=== PATIENT | female | born 1945 | race Caucasian/White ===

== ENCOUNTER 2018-07-15 08:42 | Outpatient (REF) | payer OTHER, SELFPAY ==
[2018-07-15 13:26] LABS: TSH 1.36 uIU/mL (0.358-3.74)
== END 2018-07-15 09:02 ==
LOC: NCHCN 08:42
PROVIDERS: PCP Family Medicine; Visit Provider Family Medicine
DX: E03.9 Hypothyroidism, unspecified (principal)
CPT/HCPCS: 84443

== ENCOUNTER 2018-11-21 08:10 | Outpatient (REF) | payer OTHER, SELFPAY ==
[2018-11-21 13:17] LABS: Iron 81 ug/dL (50-175); Total Iron Binding Capacity 380 ug/dL (250-450); Transferrin Sat 21 % (15-50)
[2018-11-21 13:32] LABS: Magnesium 1.9 mg/dL (1.8-2.4); TSH 6.62 uIU/mL (0.358-3.74)
== END 2018-11-21 08:30 ==
LOC: NCHCN 08:10
PROVIDERS: PCP Family Medicine; Visit Provider Family Medicine
DX: E83.42 Hypomagnesemia (principal); E61.1 Iron deficiency; E03.9 Hypothyroidism, unspecified
CPT/HCPCS: 83540; 83550; 83735; 84443

== ENCOUNTER 2019-01-28 12:39 | Outpatient (REF) | payer OTHER, SELFPAY ==
[2019-01-28 19:47] LABS: HCT 40.8 % (36.0-46.0); HGB 13.3 g/dL (12.0-15.5); Mean Corp. HGB Concentration 32.6 g/dL (32.0-36.0); Mean Corpuscular Hemoglobin 28.7 pg (27.0-33.0); Mean Corpuscular Volume 88.1 fL (80-95); Mean Platelet Volume 9.7 fL (8.0-11.0); Platelet Count 254 x1000/uL (130-400); RBC 4.63 m/cumm (4.00-5.20); RBC Distribution Width 12.9 % (11.7-14.6); White Blood Cell Count 9.83 k/cumm (4.4-10.8)
[2019-01-28 20:04] LABS: Anion Gap 10.8 mmol/L (3-11); BUN 14 mg/dL (7-18); CO2 28.2 mmol/L (21.0-32.0); CREATININE 0.66 mg/dL (0.55-1.02); Calcium 9.9 mg/dL (8.5-10.1); Chloride 98 mmol/L (98-107); Glucose 112 mg/dL (70-100); NT-proBNP 86 pg/mL; Potassium 3.3 mmol/L (3.5-5.1); Sodium 137 mmol/L (136-145); TSH (W/Ref FT4) 2.74 uIU/mL (0.358-3.74)
== END 2019-01-28 12:59 ==
LOC: NCHCN 12:39
PROVIDERS: PCP Family Medicine; Visit Provider Family Medicine
DX: R06.02 Shortness of breath (principal); E03.9 Hypothyroidism, unspecified
CPT/HCPCS: 80048; 85027; 83880; 84443

== ENCOUNTER 2019-01-29 06:56 | Outpatient (CLI) | payer OTHER, SELFPAY ==
--- NOTE | 2019-01-28 12:38 | DI.RAD_ITS ---
SYMPTOMS/DIAGNOSIS: WORSENING SHORTNESS OF BREATH, R06.02, H/O COPD, NOW WITH DYSPNEA ON EXERTION CHEST X-RAY, PA AND LATERAL: Comparison is 12/20/17. The heart size and pulmonary vasculature are within normal limits. No focal consolidating infiltrates, effusions or pneumothoraces are identified. The lungs appear hyperinflated with flattened diaphragms suggesting underlying COPD. Appropriate degenerative changes are seen in the thoracic spine. IMPRESSION: No acute pulmonary process.
== END 2019-01-29 07:16 ==
PROVIDERS: PCP Family Medicine; Visit Provider Family Medicine
DX: R06.02 Shortness of breath (principal); R06.09 Other forms of dyspnea; J44.9 Chronic obstructive pulmonary disease, unspecified
CPT/HCPCS: 71046

== ENCOUNTER 2019-03-06 13:31 | Outpatient (REF) | payer OTHER, SELFPAY ==
[2019-03-06 18:39] LABS: Bilirubin Negative (Negative); Blood Negative (Negative); Clarity Cloudy; Glucose 100 mg/dL (Negative); Ketones Negative (Negative); Leukocyte Esterase Small (Negative); Nitrite Negative (Negative); Specific Gravity 1.025 (1.005-1.025); Urobilinogen 0.2 EU/dL (Up TO 0.2)
[2019-03-06 18:50] LABS: Epithelial Cells Many HPF (Negative)
[2019-03-06 18:51] LABS: C & S Indicated? C&S Done As Ordered; Crystals Many Amorphous HPF (Negative); Mucus Negative (Negative)
== END 2019-03-06 13:51 ==
LOC: NCHCN 13:31
PROVIDERS: PCP Family Medicine; Visit Provider Family Medicine
DX: R30.9 Painful micturition, unspecified (principal)
CPT/HCPCS: 87077; 81003; 81015; 87086

== ENCOUNTER 2019-03-16 01:08 | Outpatient (CLI) | payer OTHER, SELFPAY ==
--- NOTE | 2019-03-16 10:48 | DI.MAMMO_ITS ---
SYMPTOMS/DIAGNOSIS: SCREENING, [facility], Z00.00 MAMMOGRAM: Mammograms were interpreted according to the usual protocol including computer analysis with CAD system, tomosynthesis and C view imaging. The breasts are of moderate density with fairly symmetrical distribution of fibroglandular tissue. No dominant mass or clumped microcalcification is identified in either breast. Current examination is compared with previous examinations including July 2016 and there has been no gross interval change in appearance in comparison with the previous studies. CONCLUSION: No specific evidence of malignancy at this time. Routine screening examinations are suggested at yearly intervals due to the family history of breast carcinoma. Category 1, breast density category B. MQSA ASSESSMENT OF FINDINGS: Negative. Category 1. Patient will receive a letter notifying them of these results. BI-RADS category B. There are scattered areas of fibroglandular density.
== END 2019-03-16 01:28 ==
PROVIDERS: PCP Family Medicine; Visit Provider Family Medicine
DX: Z12.31 Encounter for screening mammogram for malignant neoplasm of breast (principal); Z00.00 Encounter for general adult medical examination without abnormal findings; Z80.3 Family history of malignant neoplasm of breast
CPT/HCPCS: 77063; 77067

== ENCOUNTER 2019-06-30 09:36 | Outpatient (RCR) | payer OTHER, SELFPAY | END 2019-07-11 23:59 | disposition home or self-care (01) | LOC: PRC 09:36 | PROVIDERS: PCP Family Medicine; Visit Provider Family Medicine | DX: Z51.89 Encounter for other specified aftercare (principal) ==

== ENCOUNTER 2019-07-06 18:24 | Outpatient (REF) | payer OTHER, SELFPAY ==
[2019-07-06 19:39] LABS: ESR 35 mm/hr (0-30)
== END 2019-07-06 18:44 ==
LOC: NCHCN 18:24
PROVIDERS: PCP Family Medicine; Visit Provider Family Medicine
DX: R51 Headache (principal)
CPT/HCPCS: 85652

== ENCOUNTER 2019-07-12 04:50 | Outpatient (RCR) | payer OTHER, SELFPAY | END 2019-08-10 23:59 | disposition home or self-care (01) | LOC: PRC 04:50 | PROVIDERS: PCP Family Medicine; Visit Provider Family Medicine | DX: Z51.89 Encounter for other specified aftercare (principal) ==

== ENCOUNTER 2019-07-15 17:29 | Outpatient (REF) | payer OTHER, SELFPAY ==
[2019-07-16 11:04] LABS: Lyme Ab w Rflx to Lyme Confirm Negative
== END 2019-07-15 17:49 ==
LOC: NCHCN 17:29
PROVIDERS: PCP Family Medicine; Visit Provider Family Medicine
DX: R50.9 Fever, unspecified (principal); R51 Headache
CPT/HCPCS: 86618

== ENCOUNTER 2019-08-04 14:35 | Outpatient (REF) | payer OTHER, SELFPAY ==
[2019-08-04 18:43] LABS: Abs Immature Grans 0.04 k/cumm (0.0-0.09); Absolute Basophil Count 0.02 k/cumm (0.0-0.2); Absolute Eosinophil Count 0.29 k/cumm (0.0-0.7); Absolute Lymphocyte Count 1.42 k/cumm (1.2-3.4); Basophils % 0.2; Eosinophils % 3.2; HCT 39.8 % (36.0-46.0); HGB 12.4 g/dL (12.0-15.5); Immature Grans % 0.4; Lymphocytes % 15.7; Mean Corp. HGB Concentration 31.2 g/dL (32.0-36.0); Mean Corpuscular Hemoglobin 26.6 pg (27.0-33.0); Mean Corpuscular Volume 85.2 fL (80-95); Mean Platelet Volume 9.2 fL (8.0-11.0); Monocytes % 8.8; Neutrophils % 71.7; Platelet Count 340 x1000/uL (130-400); RBC 4.67 m/cumm (4.00-5.20); RBC Distribution Width 13.7 % (11.7-14.6); White Blood Cell Count 9.07 k/cumm (4.4-10.8)
[2019-08-04 18:56] LABS: ALT 38 U/L (14-59); AST 25 U/L (15-37); Albumin 3.8 g/dL (3.4-5.0); Alkaline Phosphatase 60 U/L (46-116); Anion Gap 12.6 mmol/L (3-11); BUN 15 mg/dL (7-18); Bilirubin, Total 0.3 mg/dL (0.2-1.0); CO2 27.4 mmol/L (21.0-32.0); CREATININE 0.71 mg/dL (0.55-1.02); Calcium 9.9 mg/dL (8.5-10.1); Chloride 100 mmol/L (98-107); Glucose 114 mg/dL (70-100); Magnesium 1.7 mg/dL (1.8-2.4); Potassium 3.7 mmol/L (3.5-5.1); Sodium 140 mmol/L (136-145); Total Protein 8.2 g/dL (6.4-8.2)
[2019-08-04 20:07] LABS: ESR 99 mm/hr (0-30)
== END 2019-08-04 14:55 ==
LOC: NCHCN 14:35
PROVIDERS: PCP Family Medicine; Visit Provider Family Medicine
DX: R50.9 Fever, unspecified (principal); E88.81 Metabolic syndrome and other insulin resistance; E83.42 Hypomagnesemia; E61.1 Iron deficiency
CPT/HCPCS: 80053; 85652; 83735; 85025

== ENCOUNTER 2019-08-04 14:44 | Outpatient (CLI) | payer OTHER, SELFPAY ==
--- NOTE | 2019-08-04 12:37 | DI.RAD_ITS ---
EXAM: XR CHEST 2V PA LATERAL INDICATION: FEVER, R50.9, COPD, J44.9. COMPARISON: XR CHEST 2V PA LATERAL from 01/28/2019 TECHNIQUE: 2D digital imaging was performed. FINDINGS: The lungs are well expanded and free of infiltrate. There is no pleural effusion. The cardiovascular structures appear intact. IMPRESSION: No evidence of acute cardiopulmonary disease.
== END 2019-08-04 15:04 ==
PROVIDERS: PCP Family Medicine; Visit Provider Family Medicine
DX: R50.9 Fever, unspecified (principal); J44.9 Chronic obstructive pulmonary disease, unspecified
CPT/HCPCS: 71046

== ENCOUNTER 2019-08-11 14:32 | Outpatient (RCR) | payer SELFPAY | END 2019-09-10 23:59 | disposition home or self-care (01) | LOC: PRC 14:32 | PROVIDERS: PCP Family Medicine; Visit Provider Family Medicine | DX: Z51.89 Encounter for other specified aftercare (principal) ==

== ENCOUNTER 2019-08-31 11:20 | Outpatient (CLI) | payer OTHER, MEDICARE, SELFPAY ==
--- NOTE | 2019-08-31 11:12 | DI.RAD_ITS ---
EXAM: XR TOE RT GREAT INDICATION: FELL AND TENDER BRUISING OVER 1ST TOE. COMPARISON: No exams were available for comparison TECHNIQUE: 2D digital imaging was performed. FINDINGS: A nondisplaced fracture of the proximal metaphysis of the distal phalanx of the great toe is noted an d appears to enter the joint space. There is no evidence of a dislocation.
== END 2019-08-31 11:40 ==
PROVIDERS: PCP Family Medicine; Visit Provider Family Medicine
DX: S92.424A Nondisplaced fracture of distal phalanx of right great toe, initial encounter for closed fracture (principal); W19.XXXA Unspecified fall, initial encounter
CPT/HCPCS: 73660

== ENCOUNTER 2019-09-15 12:27 | Outpatient (REF) | payer OTHER, SELFPAY ==
[2019-09-15 19:45] LABS: Abs Immature Grans 0.16 k/cumm (0.0-0.09); Absolute Basophil Count 0.01 k/cumm (0.0-0.2); Absolute Eosinophil Count 0.02 k/cumm (0.0-0.7); Absolute Lymphocyte Count 0.95 k/cumm (1.2-3.4); Absolute Monocyte Count 0.32 k/cumm (0.11-0.7); Absolute Neutrophil Count 9.59 k/cumm (1.2-6.7); Basophils % 0.1; Eosinophils % 0.2; HGB 13.2 g/dL (12.0-15.5); Immature Grans % 1.4; Lymphocytes % 8.6; Mean Corp. HGB Concentration 31.4 g/dL (32.0-36.0); Mean Corpuscular Hemoglobin 27.2 pg (27.0-33.0); Mean Corpuscular Volume 86.6 fL (80-95); Mean Platelet Volume 9.9 fL (8.0-11.0); Monocytes % 2.9; Neutrophils % 86.8; Platelet Count 306 x1000/uL (130-400); RBC 4.85 m/cumm (4.00-5.20); RBC Distribution Width 15.3 % (11.7-14.6); White Blood Cell Count 11.05 k/cumm (4.4-10.8)
[2019-09-15 19:59] LABS: ALT 77 U/L (14-59); AST 22 U/L (15-37); Alkaline Phosphatase 56 U/L (46-116); Anion Gap 14.7 mmol/L (3-11); BUN 27 mg/dL (7-18); Bilirubin, Total 0.4 mg/dL (0.2-1.0); CO2 26.3 mmol/L (21.0-32.0); CREATININE 0.76 mg/dL (0.55-1.02); Calcium 10.1 mg/dL (8.5-10.1); Chloride 96 mmol/L (98-107); Glucose 291 mg/dL (70-100); Sodium 137 mmol/L (136-145); Total Protein 7.7 g/dL (6.4-8.2)
[2019-09-15 20:40] LABS: ESR 19 mm/hr (0-30)
== END 2019-09-15 12:47 ==
LOC: NCHCN 12:27
PROVIDERS: PCP Family Medicine; Visit Provider Family Medicine
DX: E83.42 Hypomagnesemia (principal); M31.6 Other giant cell arteritis
CPT/HCPCS: 80053; 85652; 83735; 85025

== ENCOUNTER 2019-11-09 21:13 | Outpatient (REF) | payer OTHER, MEDICARE, SELFPAY ==
[2019-11-09 21:20] LABS: Absolute Basophil Count 0.03 k/cumm (0.0-0.2); Absolute Lymphocyte Count 0.79 k/cumm (1.2-3.4); Absolute Monocyte Count 0.32 k/cumm (0.11-0.7); Basophils % 0.2; HCT 38.6 % (36.0-46.0); HGB 11.8 g/dL (12.0-15.5); Immature Grans % 0.7; Lymphocytes % 5.9; Mean Corp. HGB Concentration 30.6 g/dL (32.0-36.0); Mean Corpuscular Hemoglobin 26.6 pg (27.0-33.0); Mean Corpuscular Volume 87.1 fL (80-95); Mean Platelet Volume 9.4 fL (8.0-11.0); Monocytes % 2.4; Neutrophils % 90.8; Platelet Count 399 x1000/uL (130-400); RBC 4.43 m/cumm (4.00-5.20); RBC Distribution Width 14.9 % (11.7-14.6); White Blood Cell Count 13.44 k/cumm (4.4-10.8)
[2019-11-09 21:25] LABS: ALT 59 U/L (14-59); AST 23 U/L (15-37); Alkaline Phosphatase 51 U/L (46-116); Anion Gap 11.3 mmol/L (3-11); BUN 19 mg/dL (7-18); Bilirubin, Total 0.3 mg/dL (0.2-1.0); CO2 28.7 mmol/L (21.0-32.0); CREATININE 0.64 mg/dL (0.55-1.02); Calcium 9.4 mg/dL (8.5-10.1); Chloride 99 mmol/L (98-107); Glucose 193 mg/dL (74-106); Potassium 4.3 mmol/L (3.5-5.1); Sodium 139 mmol/L (136-145); Total Protein 7.5 g/dL (6.4-8.2)
== END 2019-11-09 21:33 ==
LOC: NCHCN 21:13
PROVIDERS: PCP Family Medicine; Visit Provider Family Medicine
DX: M31.6 Other giant cell arteritis (principal)
CPT/HCPCS: 80053; 85025

== ENCOUNTER 2020-01-20 17:21 | Outpatient (REF) | payer OTHER, SELFPAY ==
[2020-01-20 13:18] LABS: Abs Immature Grans 0.15 k/cumm (0.0-0.09); Absolute Basophil Count 0.04 k/cumm (0.0-0.2); Absolute Eosinophil Count 0.07 k/cumm (0.0-0.7); Absolute Lymphocyte Count 1.11 k/cumm (1.2-3.4); Absolute Neutrophil Count 11.36 k/cumm (1.2-6.7); Basophils % 0.3; Eosinophils % 0.5; HCT 33.4 % (36.0-46.0); HGB 9.8 g/dL (12.0-15.5); Immature Grans % 1.1 %; Lymphocytes % 8.4; Mean Corp. HGB Concentration 29.3 g/dL (32.0-36.0); Mean Corpuscular Hemoglobin 23.4 pg (27.0-33.0); Mean Corpuscular Volume 79.7 fL (80-95); Monocytes % 3.8; Neutrophils % 85.9; Platelet Count 381 x1000/uL (130-400); RBC 4.19 m/cumm (4.00-5.20); RBC Distribution Width 15.9 % (11.7-14.6); White Blood Cell Count 13.22 k/cumm (4.4-10.8)
[2020-01-20 13:36] LABS: Basophilic Stippling Present; Diff Comment Diff Reviewed; Hypochromasia 2+
[2020-01-20 13:42] LABS: Hemoglobin A1C 9.5 % (3.8-5.6)
[2020-01-20 13:46] LABS: Anion Gap 12.7 mmol/L (3-11); BUN 20 mg/dL (7-18); CO2 25.3 mmol/L (21.0-32.0); CREATININE 0.72 mg/dL (0.55-1.02); Calcium 9.2 mg/dL (8.5-10.1); Chloride 99 mmol/L (98-107); Glucose 192 mg/dL (74-106); Magnesium 1.8 mg/dL (1.8-2.4); NT-proBNP 74 pg/mL (<300); Potassium 4.3 mmol/L (3.5-5.1); Sodium 137 mmol/L (136-145); TSH (W/Ref FT4) 0.72 uIU/mL (0.36-3.74)
== END 2020-01-20 17:41 ==
LOC: NCHCN 17:21
PROVIDERS: PCP Family Medicine; Visit Provider Family Medicine
DX: R06.02 Shortness of breath (principal); E83.42 Hypomagnesemia; E03.9 Hypothyroidism, unspecified; E61.1 Iron deficiency; E11.9 Type 2 diabetes mellitus without complications; Z79.4 Long term (current) use of insulin
CPT/HCPCS: 80048; 83036; 83735; 83880; 84443; 85025

== ENCOUNTER 2020-03-02 15:50 | Outpatient (REF) | payer OTHER, SELFPAY ==
[2020-03-02 15:19] LABS: HCT 34.7 % (36.0-46.0); Mean Corp. HGB Concentration 28.8 g/dL (32.0-36.0); Mean Corpuscular Hemoglobin 22.4 pg (27.0-33.0); Mean Corpuscular Volume 77.6 fL (80-95); Mean Platelet Volume 9.5 fL (8.0-11.0); Platelet Count 421 x1000/uL (130-400); RBC 4.47 m/cumm (4.00-5.20); RBC Distribution Width 18.5 % (11.7-14.6); White Blood Cell Count 11.45 k/cumm (4.4-10.8)
[2020-03-02 15:34] LABS: Iron 21 ug/dL (50-170); Total Iron Binding Capacity 465 ug/dL (250-450); Transferrin Sat 5 % (15-50)
[2020-03-02 15:47] LABS: Ferritin 19 ng/mL (8-252)
== END 2020-03-02 16:10 ==
LOC: NCHCN 15:50
PROVIDERS: PCP Family Medicine; Visit Provider Family Medicine
DX: D50.0 Iron deficiency anemia secondary to blood loss (chronic) (principal)
CPT/HCPCS: 85027; 82728; 83540; 83550

== ENCOUNTER 2020-05-04 15:15 | Outpatient (REF) | payer OTHER, SELFPAY ==
[2020-05-04 21:25] LABS: HCT 35.2 % (36.0-46.0); HGB 10.5 g/dL (12.0-15.5); Mean Corp. HGB Concentration 29.8 g/dL (32.0-36.0); Mean Corpuscular Hemoglobin 23.3 pg (27.0-33.0); Mean Platelet Volume 9.6 fL (8.0-11.0); Platelet Count 361 x1000/uL (130-400); RBC 4.51 m/cumm (4.00-5.20); RBC Distribution Width 17.8 % (11.7-14.6); White Blood Cell Count 9.91 k/cumm (4.4-10.8)
[2020-05-04 21:30] LABS: Iron 19 ug/dL (50-170); Total Iron Binding Capacity 438 ug/dL (250-450); Transferrin Sat 4 % (15-50)
== END 2020-05-04 15:35 ==
LOC: NCHCN 15:15
PROVIDERS: PCP Family Medicine; Visit Provider Family Medicine
DX: D50.0 Iron deficiency anemia secondary to blood loss (chronic) (principal)
CPT/HCPCS: 85027; 83540; 83550

== ENCOUNTER 2020-06-08 01:57 | Outpatient (CLI) | payer OTHER, SELFPAY ==
--- NOTE | 2020-06-08 | DI.DEXA_ITS ---
EXAM: XR DEXA BONE DENSITY W/WO TYRA CLINICAL HISTORY: LANGUAGE INSTRUCTOR STEROID USE, Z79.52 TECHNIQUE: [employer] Horizon C densitometer. COMPARISON: 2013 FINDINGS: The lateral tomogram view of the thoracic and lumbar spine shows no evidence of compression fractur es. The aorta is calcified and appears normal in diameter where visualized. The bone mineral density measurements of the lumbar spine correspond to a total T-score of 1.6, in th e normal range. This represents an increase of 6.6 percent when compared with 2013. Findings could be in part secondary to increasing degenerative disc changes with increased endplate sclerosis. The bone mineral density measurements of the left hip correspond to a total T-score 1.9 and a femoral neck T-score of 0.9, in the normal range. There has been a 3.5 percent decrease in bone mineral den sity when compared with 2013. The bone mineral density measurements of the left forearm correspond to a T-score of distal 3rd of 0. 6, in the normal range. This is not significantly different from the previous exam. IMPRESSION: Normal bone mineral density.
== END 2020-06-08 02:17 ==
PROVIDERS: PCP Family Medicine; Visit Provider Family Medicine
DX: Z79.52 Long term (current) use of systemic steroids (principal)
CPT/HCPCS: 77080

== ENCOUNTER 2021-01-11 11:05 | Emergency (ER) | payer OTHER, SELFPAY ==
[2021-01-11 11:17] VITALS: BP 180/84; PULSE 104; RESP 24; TEMP 36.5; O2SAT 94
--- OUTSIDE RECORDS SUMMARY | 2021-01-11 11:17 | XMS_ITS ---
:1945 Author Care Team Providers Name Role Phone DR. RAMONA BIRCH Primary Care Provider [phone] DR. RAMONA BIRCH Referring Provider [phone] Allergies Code Code System Name Reaction Severity Status Onset 5781 RxNorm Indomethacin ? ? Active ? Notes: insect bite Medications Name Status Start Date Stop Date ? ? Advair Diskus 500 mcg-50 mcg/dose powder for inhalation Active ? Not available Inhale 1 puff twice a day by inhalation route. amlodipine 10 mg tablet Active ? Not avai lable Take 1 tablet every day by oral route. atorvastatin 20 mg tablet Active ? Not av ailable Take 1 tablet every day by oral route. BD Ultra Fine II Insulin Syringe 0.5 mL 31 gauge x 5/16 Active ? Not available Inject insulin subcutaneously as directed(once daily at bedtime ) Compression Stockings Active ? Not availa ble Knee high, use external Daliresp 500 mcg tablet Active ? Not avai lable Take 1 tablet every day by oral route. Farxiga 5 mg tablet Active ? Not availabl e Take 1 tablet every day by oral route. ipratropium 0.5 mg-albuterol 3 mg (2.5 mg base)/3 mL nebulizatio n soln Active ? Not available Inhale contents of 1 ampule via nebulizer every 4 to 6 hours as needed levothyroxine 125 mcg tablet Active ? Not available Take 1 tablet every day by oral route. losartan 100 mg-hydrochlorothiazide 25 mg tablet Active ? Not available Take 1 tablet every day by oral route. magnesium 400 mg (as magnesium oxide) capsule Active ? Not available Take 1 capsule twice a day by oral route. metformin 1,000 mg tablet Active ? Not av ailable Take 1 tablet twice a day by oral route. metoprolol succinate ER 25 mg tablet,extended release 24 hr Acti ve ? Not available Take 1 tablet every day by oral route. omeprazole 20 mg capsule,delayed release Active ? Not available Take 1 capsule every day by oral route. OneTouch Delica Lancets Active ? Not avai lable Test once a day OneTouch Ultra Blue Test Strip Active ? N ot available Test once a day oxygen Active ? Not available 2-4 liters continuous prednisone 20 mg tablet Active ? Not avai lable TAKE 3 TABLET (20 MG) BY ORAL ROUTE ONCE DAILY Spiriva with HandiHaler 18 mcg and inhalation capsules Active ? Not available Inhale 1 capsule every day by inhalation route. spironolactone 50 mg tablet Active ? Not available Take 1 tablet every day by oral route. Ventolin HFA 90 mcg/actuation aerosol inhaler Active ? Not available Inhale 2 puffs every 4-6 hours by inhalation route as needed. Vitamin D 2,000 unit capsule Active ? Not available Take 1 capsule every day by oral route. Problems Name Status Onset Date Source ? Polyp of Colon Active ? ? Hypothyroidism Active ? ? Type 2 Diabetes Mellitus Active ? ? Hyperlipidemia Active ? ? Iron Deficiency Active ? ? Hypomagnesemia Active ? ? Metabolic Syndrome X Active ? ? Obstructive Sleep Apnea of Adult Active ? ? Hypertensive Disorder Active ? ? Temporal Arteritis Active ? ? Peripheral Venous Insufficiency Active ? ? Chronic Obstructive Lung Disease Active ? ? Gastritis Active ? ? Fever Active ? ? Headache Active ? ? Intermittent Palpitations Active ? ? Adult Health Examination Active ? ? Pain in Left Knee Active ? ? Procedures Date Name Performed by ? ? Colonoscopy Information not avai lable Notes: BLADDER SLING Results Lab Results None recorded. Past Encounters 08/06/2019 Tone Contreras, DO: [address] [place] [address], Ph. Social History Tobacco Smoking Status Former Smoker (1 pack per Notes: UP TO ONE PACK A week) DAY Vaccine List None recorded. Plan of Care Reminders Provider Appointments None ? ? recorded. Lab None ? ? recorded. Referral None ? ? recorded. Procedures None ? ? recorded. Surgeries None ? ? recorded. Imaging None ? ? recorded. Vitals Height Weight BMI Blood Pressure 160.02 cm 89.36 kg 34.9 kg/m2 136/50 mm[Hg]
--- NOTE | 2021-01-11 11:27 | ED.GENADUL_ITS ---
Discharge Plan Disposition Patient Disposition: HOME Condition: Stable Discharge Details Clinical Impression: Abscess of chest wall Primary Care Provider: Manny Lazaro ED Provider: Gage Butterfield Home Meds and New Rx's Prescriptions: New sulfamethoxazole-trimethoprim [Bactrim DS] 800-160 mg tablet 1 tab PO BID Qty: 14 RF: 0 Continued losartan-hydrochlorothiazide [Hyzaar] 1 EACH tablet 1 tab PO DAILY Qty: 90 RF: 4 ipratropium-albuterol 3 ML solution for nebulization 3 ml Inhalation PRN PRNQty: 120 RF: 12 amlodipine [Norvasc] 5 MG tablet 5 mg PO DAILY Qty: 90 RF: 4 levothyroxine [Levothroid] 100 MCG tablet 100 mcg PO DAILY@0730 Qty: 90 RF: 4 fluticasone propion-salmeterol [Advair Diskus] 1 EACH blister with device 1 gm Inhalation BID Qty: 1 RF: 12 omeprazole 20 MG capsule,delayed release(DR/EC) 20 mg PO DAILY RF: 0 albuterol sulfate [Ventolin HFA] 8 GM HFA aerosol inhaler 1 - 2 puff Inhalation Q4H PRN RF: 0 aspirin [Aspirin Low-Strength] 81 MG tablet,chewable 81 mg PO DAILY RF: 0 Spiriva with HandiHaler 18 MCG capsule, w/inhalation device 18 mcg Inhalation DAILY RF: 0 Daliresp 500 MCG tablet 500 mcg PO DAILY RF: 0 metformin 500 MG tablet 500 mg PO QAM RF: 0 atorvastatin [Lipitor] 20 MG tablet 20 mg PO QAM RF: 0 cetirizine [Zyrtec] 10 MG tablet 10 mg PO HS Qty: 14 RF: 0 prednisone 20 MG tablet 20 mg PO DAILY RF: 0 Discharge Instructions Instructions: Abscess (ED) Additional Instructions: Try to keep the wound open for a few days by applying pressure and cleaning it in the shower if you have severe worsening pain, fevers or feel the abscess is worsening return to the emergency department Medical Decision Making 75 yo female comes in with a boilworsening over 2 weeks to left anterior superior chest. Denies fevers, severe pain, chills. Has a 2x3cm erythema fluctuance on previously stated area and no crepitus, on bedside u/s appears to be abscess, will try to I and D. No symptoms or findings to suggest sepsis at this time. Has 1cm surrounding erythema so likely will need antibiotics as well pt tolerated i and d well without complications and under sterile technique, expressed moderate amount of purulent material. Will place on bactrim and return precautions given Differential Diagnosis Differential Diagnosis: abscess, cellulitis HPI General Mode of arrival: ambulatory . Date/Time Provider Initiated Documentation: 01/11/21 11:07 . Limitations to Documentation: no limitations . Information obtained by: patient . History of Present Illness 75 year old F presents to the emergency department with the chief complaint of boil, described as moderate, and it has been constant. No relieving factors improve symptom(s), No exacerbating factors reported . Patient did receive the following treatments prior to arrival, none Related Data Home Medications Medication Instructions Recorded Confirmed Spiriva with HandiHaler 18 mcg INHALATION DAILY 01/09/13 09/16/19 aspirin [Aspirin Low-Strength] 81 mg PO DAILY 01/09/13 09/16/19 losartan-hydrochlorothiazide 1 tab PO DAILY #90 tab-cap 02/05/13 09/16/19 [Hyzaar] amlodipine [Norvasc] 5 mg PO DAILY #90 tab-cap 02/06/13 09/16/19 fluticasone propion-salmeterol 1 gm INHALATION BID #1 inh.kit 02/06/13 09/16/19 [Advair Diskus] ipratropium-albuterol 3 ml INHALATION PRN PRN #120 ml 02/06/13 09/16/19 levothyroxine [Levothroid] 100 mcg PO DAILY@0730 #90 tab 02/06/13 09/16/19 omeprazole 20 mg PO DAILY tab-cap 04/03/13 09/16/19 Daliresp 500 mcg PO DAILY 01/22/15 09/16/19 albuterol sulfate [Ventolin HFA] 1 - 2 puff INHALATION Q4H PRN 03/21/15 09/16/19 inhaler atorvastatin [Lipitor] 20 mg PO QAM 07/24/15 09/16/19 cetirizine [Zyrtec] 10 mg PO HS #14 tab 07/24/15 09/16/19 metformin 500 mg PO QAM 07/24/15 09/16/19 prednisone 20 mg PO DAILY 01/30/16 09/16/19 sulfamethoxazole-trimethoprim 1 tab PO BID #14 tab 01/11/21 [Bactrim DS] Previous Rx's Medication Instructions Recorded cetirizine [Zyrtec] 10 mg PO HS #14 tab 07/24/15 sulfamethoxazole-trimethoprim 1 tab PO BID #14 tab 01/11/21 [Bactrim DS] Allergies Allergy/AdvReac Type Severity Reaction Status Date / Time indomethacin AdvReac Severe SWELLING Unverified 09/16/19 09:19 General Stated Complaint: Cellulitis SAPNA: 3 Review of Systems All systems reviewed & are unremarkable except as noted in HPI and below Constitutional Constitutional: Denies chills, Denies fever(s) and Denies weakness Cardiovascular Cardiovascular: Denies chest pain and Denies dyspnea Respiratory Respiratory: Denies cough and Denies dyspnea Gastrointestinal Gastrointestinal: Denies abdominal pain, Denies nausea and Denies vomiting Neurologic Neurologic: Denies weakness Psychiatric Psychiatric: Denies depression PFSH Social History Smoking/Tobacco Use Status: Former Tobacco Use Smoking risk assessment performed?: Yes Alcohol Intake: current Alcohol Intake frequency: holidays/special occasions only Drug use: Never Current gender identity: female Do you feel safe at home: Yes Exam Const General: no acute distress Orientation: alert HENMT Head: normal to inspection Ears: external ears normal General nose exam: external nose normal Mouth: moist mucous membranes Eyes General: appearance normal, both eyes and all related structures Neck Neck: normal visual inspection Resp Effort & Inspection: normal respiratory effort and able to speak in complete sentences Cardio Rate: regular rate Skin General skin exam: elasticity normal Neuro General: patient alert and patient oriented x3 Extrem General: normal to inspection Psych Mental Status: mental status grossly normal Course Vital Signs Vital signs: Vital Signs Temperature 36.5 C 01/11/21 11:17 Pulse 104 H 01/11/21 11:17 Respiratory Rate 24 01/11/21 11:17 Blood Pressure 180/84 H 01/11/21 11:17 Pulse Oximetry 94 01/11/21 11:17 Temperature 36.5 C 01/11/21 11:17 Temperature Source Skin 01/11/21 11:17 Pulse 104 H 01/11/21 11:17 Respiratory Rate 24 01/11/21 11:17 Respiratory Effort 01/11/21 11:21 Blood Pressure 180/84 H 01/11/21 11:17 Blood Pressure Position Sitting 01/11/21 11:17 Pulse Oximetry 94 01/11/21 11:17 Oxygen Delivery Method Room Air 01/11/21 11:17 Oxygen Flow Rate 0 01/11/21 11:17 Pain Level 3 01/11/21 11:17 Procedures Abscess I/D Site: Chest Side (if applicable): Left Local Anesthetic: Lidocaine 1% Amount of anesthesia used (mL): 4 Technique: Incised with #11 Blade Amount of fluid expressed (mL): 10 Irrigation: Yes Packing used?: None
[2021-01-11] MEDS: Lidocaine/Epinephri/Tetracaine Topical Gel 3 ML TP (11:35)
== END 2021-01-11 12:30 | disposition home or self-care (01) ==
PROVIDERS: Emergency Provider Emergency Medicine; PCP Family Medicine
DX: L02.213 Cutaneous abscess of chest wall (principal)
CPT/HCPCS: 10060

== ENCOUNTER 2021-01-25 19:45 | Outpatient (REF) | payer OTHER, SELFPAY ==
[2021-01-25 15:55] LABS: Abs Immature Grans 0.03 10^3/uL (0.0-0.06); Absolute Basophil Count 0.05 10^3/uL (0.0-0.2); Absolute Eosinophil Count 0.25 10^3/uL (0.0-0.7); Absolute Lymphocyte Count 1.12 10^3/uL (1.2-3.4); Absolute Monocyte Count 0.52 10^3/uL (0.1-0.8); Absolute Neutrophil Count 8.32 10^3/uL (1.2-6.7); Basophils % 0.5; Eosinophils % 2.4; HCT 38.6 % (36.0-46.0); HGB 12.1 g/dL (11.2-15.7); Immature Grans % 0.3; Lymphocytes % 10.9; MCH 27.3 pg (27.0-33.0); MCHC 31.3 % (32.0-36.0); MCV 87.1 fL (80-95); MPV 9.4 fL (8.0-11.0); Monocytes % 5.1; Neutrophils % 80.8; Nucleated RBC 0 %; Platelet Count 302 10^3/uL (130-400); RBC 4.43 10^6/uL (3.93-5.22); RDW-SD 41.4 fL; WBC 10.29 10^3/uL (4.4-10.8)
[2021-01-25 16:01] LABS: Iron 48 ug/dL (50-170); Total Iron Binding Capacity 446 ug/dL (250-450); Transferrin Sat 11 % (15-50)
[2021-01-25 16:24] LABS: ALT 64 U/L (14-59); AST 41 U/L (15-37); Albumin 4.3 g/dL (3.4-5.0); Alkaline Phosphatase 55 U/L (46-116); Anion Gap 12.2 mmol/L (3-11); BUN 16 mg/dL (7-18); Bilirubin, Total 0.3 mg/dL (0.2-1.0); CO2 29.8 mmol/L (21.0-32.0); CREATININE 0.6 mg/dL (0.55-1.02); Calcium 10.3 mg/dL (8.5-10.1); Chloride 98 mmol/L (98-107); Glucose 125 mg/dL (74-106); Potassium 3.8 mmol/L (3.5-5.1); Sodium 140 mmol/L (136-145); TSH (W/Ref FT4) 1.01 uIU/mL (0.36-3.74); Total Protein 8.1 g/dL (6.4-8.2)
== END 2021-01-25 19:46 | disposition home or self-care (01) ==
LOC: NCHCN 19:45
PROVIDERS: PCP Family Medicine; Visit Provider Family Medicine
DX: E83.42 Hypomagnesemia (principal); E03.9 Hypothyroidism, unspecified; D50.0 Iron deficiency anemia secondary to blood loss (chronic); E11.9 Type 2 diabetes mellitus without complications; Z79.4 Long term (current) use of insulin
CPT/HCPCS: 80053; 83540; 83550; 83735; 84443; 85025

== ENCOUNTER 2021-05-11 20:31 | Outpatient (REF) | payer OTHER, MEDICARE, SELFPAY ==
[2021-05-11 19:43] LABS: Anion Gap 9.7 mmol/L (3-11); BUN 18 mg/dL (7-18); CO2 27.3 mmol/L (21.0-32.0); CREATININE 0.7 mg/dL (0.55-1.02); Calcium 9.9 mg/dL (8.5-10.1); Chloride 101 mmol/L (98-107); Glucose 132 mg/dL (74-106); Potassium 4.2 mmol/L (3.5-5.1); Sodium 138 mmol/L (136-145)
== END 2021-05-11 20:32 | disposition home or self-care (01) ==
LOC: NCHCN 20:31
PROVIDERS: PCP Family Medicine; Visit Provider Family Medicine
DX: I10 Essential (primary) hypertension (principal)
CPT/HCPCS: 80048

== ENCOUNTER 2021-06-28 10:46 | Emergency (ER) | payer OTHER, SELFPAY ==
--- NOTE | 2021-06-28 10:52 | RT.EKG_ITS ---
APPROVED REPORT Exam: Resting ECG Reason for Exam: chest pain Patient Location: E HR:77 bpm ECG Measurements Heart Rate 77 AXIS IA 170 P -10 QRSd 82 QRS 38 QT 383 T 8 QTc 434 Conclusion Sinus rhythm...normal P axis, V-rate 60- 99
[2021-06-28 10:54] VITALS: BP 160/58; PULSE 100; RESP 14; TEMP 36.6; O2SAT 97
--- NOTE | 2021-06-28 11:15 | DI.CT_ITS ---
Exam(s) CT CHEST PE CTA EXAM: CT CHEST PE CTA CLINICAL HISTORY: pleuritic right sided chest pain. TECHNIQUE: Imaging Protocol: CT angiography of the chest was performed using pulmonary embolus amber col. Multi planar reconstructions were performed. CONTRAST MATERIAL: Intravenous: Omnipaque 350 Contrast volume: 100 cc COMPARISON: CT CHEST FOR PULMONARY EMBOLUS from 01/30/2016 FINDINGS: CHEST: PULMONARY ARTERIES: There are no intraluminal filling defects to suggest acute pulmonary emboli. LUNGS: There are relatively symmetrical benign-appearing increased markings in the posterior aspect o f both upper lobes including posterior segment of the right upper lobe and apical posterior segment o f the left upper lobe.. In the lateral segment of the right middle lobe there are atelectatic markin gs. Also similar findings in the posterior basal segment right lower lobe. Some atelectasis in the lingular segment left lung noted. No significant findings in the left lower lobe basal segments. No pleural effusions. No significant focal findings in the trachea and mainstem bronchi. MEDIASTINUM: There is no hilar nor mediastinal adenopathy. Visualized thyroid unremarkable. CARDIAC: Heart size is upper normal. There is no pericardial effusion.Caliber of the thoracic aorta is within normal limits. There is no significant shift of the interventricular septum. PARTIALLY VISUALIZED UPPERMOST ABDOMEN: No obvious findings OSSEOUS: No significant osseous lesions.. IMPRESSION: 1. No evidence of acute pulmonary emboli. No evidence of pulmonary infarction.No pleural effusions. 2. Mild increased markings both lungs as described above. No pleural effusions. No intrathoracic ad enopathy. 3. No evidence of aortic dissection. RADIATION DOSE DELIVERED: 606.65mGy.cm Total DLP DATA REPOSITORY: All CT scans at this facility are submitted to the National Radiology Data Registry (NRDR) Dose Index Registry (DIR) with the [employer] (A[employer]). RADIATION OPTIMIZATION: All CT scans at this facility use at least one of these dose optimization te chniques: automated exposure control; mA and/or kV adjustment per patient size (includes targeted exa ms where dose is matched to clinical indication); or iterative reconstruction.
--- NOTE | 2021-06-28 11:17 | ED.GENADUL_ITS ---
Discharge Plan Disposition Patient Disposition: HOME Condition: Stable Discharge Details Clinical Impression: Right-sided chest pain Primary Care Provider: Manny Lazaro ED Provider: Gage Butterfield Home Meds and New Rx's Prescriptions: Continued losartan-hydrochlorothiazide [Hyzaar] 1 EACH tablet 1 tab PO DAILY Qty: 90 RF: 4 ipratropium-albuterol 3 ML solution for nebulization 3 ml Inhalation PRN PRNQty: 120 RF: 12 amlodipine [Norvasc] 5 MG tablet 5 mg PO DAILY Qty: 90 RF: 4 levothyroxine [Levothroid] 100 MCG tablet 100 mcg PO DAILY@0730 Qty: 90 RF: 4 fluticasone propion-salmeterol [Advair Diskus] 1 EACH blister with device 1 gm Inhalation BID Qty: 1 RF: 12 omeprazole 20 MG capsule,delayed release(DR/EC) 20 mg PO DAILY RF: 0 albuterol sulfate [Ventolin HFA] 8 GM HFA aerosol inhaler 1 - 2 puff Inhalation Q4H PRN RF: 0 aspirin [Aspirin Low-Strength] 81 MG tablet,chewable 81 mg PO DAILY RF: 0 Spiriva with HandiHaler 18 MCG capsule, w/inhalation device 18 mcg Inhalation DAILY RF: 0 Daliresp 500 MCG tablet 500 mcg PO DAILY RF: 0 metformin 500 MG tablet 500 mg PO QAM RF: 0 atorvastatin [Lipitor] 20 MG tablet 20 mg PO QAM RF: 0 cetirizine [Zyrtec] 10 MG tablet 10 mg PO HS Qty: 14 RF: 0 prednisone 20 MG tablet 20 mg PO DAILY RF: 0 Discharge Instructions Instructions: Chest Pain (ED) Additional Instructions: your ekg, blood work and cat scan did not show concerning findings at this time follow up with your primary care provider as soon as possible if you feel more ill, have severe worsening pain or difficulty breathing return to the emergency department Medical Decision Making 75 yo female with hx of copd on home o2 and former smoker, htn, dm, who comes in with chief complaint of right sided chest pain especially with deep breaths and cough for 3 days. Denies anterior chest pain or pressure, no diaphoresis, no n/v and no abdomen pain. Denies radiation of the pain. Pain is in the mid axillary line and there is no rash on exam. She is speaking in full sentences in no distress, no abdomen tenderness and clear lungs on exam. Concern for possible nstemi, pe, pneumothorax and pneumonia, will obtain ekg, labs and cta for pe. Has no tearing chest pain and normal vascular exam so doubt dissection labs and imaging thus far unremarkable and she remains stable and feels much better. I discussed findings with patient and discussed admission for observati on which she declines, and given atypical nature of the pain this seems reasonable. Will obtain delta troponin and ecg. patient remains stable and feels well without pain now, repeat delta troponin and ecg unchanged, will d/c and have her f/u with pcp return precautions given Differential Diagnosis Differential Diagnosis: nstemi, pe, pneumothorax, pneumonia Medical Records Medical records reviewed: Yes I reviewed the patient's medical records. Imaging Data Radiologic Study: Attestation: I personally reviewed and interpreted this imaging study as follows: Imaging: CT Scan Radiologist's impression: IMPRESSION: 1. No evidence of acute pulmonary emboli. No evidence of pulmonary infarction.No pleural effusions. 2. Mild increased markings both lungs as described above. No pleural effusions. No intrathoracic adenopathy. 3. No evidence of aortic dissection Lab Data Lab results reviewed: Yes I reviewed the patient's lab results. ECG Data Attestation: I personally reviewed and interpreted this ECG (s) as follows: Prior ECG tracings: available for review Interpretation: sinus rhythm, rate of 77, pr 170, qtc [address] t wave ischemic findings sinus rhythm, rate of 68, no acute changes from first ekg there is motion artifact limiting interpreation HPI General Mode of arrival: ambulatory . Date/Time Provider Initiated Documentation: 06/28/21 11:03 . Limitations to Documentation: no limitations . Information obtained by: patient . History of Present Illness 75 year old F presents to the emergency department with the chief complaint of right sided chest pain, described as moderate, Quality is described as aching, and is localized to the chest. Patient reports no radiation. Patient started experiencing this day(s) (3) and it has been constant. No relieving factors improve symptom(s), Other factors that worsen symptoms (deep breaths) . Patient notes cough. Patient did receive the following treatments prior to arrival, none Related Data Home Medications Medication Instructions Recorded Confirmed Spiriva with HandiHaler 18 mcg INHALATION DAILY 01/09/13 06/28/21 aspirin [Aspirin Low-Strength] 81 mg PO DAILY 01/09/13 06/28/21 losartan-hydrochlorothiazide 1 tab PO DAILY #90 tab-cap 02/05/13 06/28/21 [Hyzaar] amlodipine [Norvasc] 5 mg PO DAILY #90 tab-cap 02/06/13 06/28/21 fluticasone propion-salmeterol 1 gm INHALATION BID #1 inh.kit 02/06/13 06/28/21 [Advair Diskus] ipratropium-albuterol 3 ml INHALATION PRN PRN #120 ml 02/06/13 06/28/21 levothyroxine [Levothroid] 100 mcg PO DAILY@0730 #90 tab 02/06/13 06/28/21 omeprazole 20 mg PO DAILY tab-cap 04/03/13 06/28/21 Daliresp 500 mcg PO DAILY 01/22/15 06/28/21 albuterol sulfate [Ventolin HFA] 1 - 2 puff INHALATION Q4H PRN 03/21/15 06/28/21 inhaler atorvastatin [Lipitor] 20 mg PO QAM 07/24/15 06/28/21 cetirizine [Zyrtec] 10 mg PO HS #14 tab 07/24/15 06/28/21 metformin 500 mg PO QAM 07/24/15 06/28/21 prednisone 20 mg PO DAILY 01/30/16 06/28/21 Previous Rx's Medication Instructions Recorded cetirizine [Zyrtec] 10 mg PO HS #14 tab 07/24/15 Allergies Allergy/AdvReac Type Severity Reaction Status Date / Time indomethacin AdvReac Severe SWELLING Unverified 06/28/21 10:59 General Stated Complaint: Chest Pain SAPNA: 2 Review of Systems All systems reviewed & are unremarkable except as noted in HPI and below Constitutional Constitutional: Denies chills, Denies fever(s) and Denies weakness Cardiovascular Cardiovascular: Denies dyspnea Respiratory Respiratory: Denies dyspnea Gastrointestinal Gastrointestinal: Denies abdominal pain, Denies nausea and Denies vomiting Musculoskeletal Musculoskeletal: Denies joint swelling Neurologic Neurologic: Denies weakness Psychiatric Psychiatric: Denies depression PFSH Social History Smoking/Tobacco Use Status: Former Tobacco Use Smoking risk assessment performed?: Yes Alcohol Intake: current Alcohol Intake frequency: holidays/special occasions only Drug use: Never Current gender identity: female Do you feel safe at home: Yes Do you feel safe in your relationship?: Yes Exam Const General: no acute distress Orientation: alert HENMT Head: normal to inspection Ears: external ears normal General nose exam: external nose normal Mouth: moist mucous membranes Eyes General: appearance normal, both eyes and all related structures Neck Neck: normal visual inspection Chest Chest: normal inspection of the chest Resp Effort & Inspection: normal respiratory effort and able to speak in complete sentences Cardio Rate: regular rate Skin General skin exam: no rashes or lesions noted Neuro General: patient alert and patient oriented x3 Extrem General: normal to inspection Psych Mental Status: mental status grossly normal Course Vital Signs Vital signs: Vital Signs Temperature 36.6 C 06/28/21 10:54 Pulse 100 H 06/28/21 10:54 Respiratory Rate 14 06/28/21 10:54 Blood Pressure 160/58 H 06/28/21 10:54 Pulse Oximetry 97 06/28/21 10:54 Temperature 36.6 C 06/28/21 10:54 Temperature Source Skin 06/28/21 10:54 Pulse 100 H 06/28/21 10:54 Respiratory Rate 14 06/28/21 10:54 Blood Pressure 160/58 H 06/28/21 10:54 Blood Pressure Position Supine 06/28/21 10:54 Pulse Oximetry 97 06/28/21 10:54 Oxygen Delivery Method Room Air 06/28/21 10:54 Oxygen Flow Rate 0 06/28/21 10:54 Pain Level 10 06/28/21 10:54
[2021-06-28 11:26] LABS: Abs Immature Grans 0.05 10^3/uL (0.0-0.06); Absolute Basophil Count 0.07 10^3/uL (0.0-0.2); Absolute Eosinophil Count 0.42 10^3/uL (0.0-0.7); Absolute Lymphocyte Count 2.31 10^3/uL (1.2-3.4); Absolute Monocyte Count 0.77 10^3/uL (0.1-0.8); Absolute Neutrophil Count 6.25 10^3/uL (1.2-6.7); Basophils % 0.7; Eosinophils % 4.3; HCT 39.6 % (36.0-46.0); HGB 12.1 g/dL (11.2-15.7); Immature Grans % 0.5; Lymphocytes % 23.4; MCH 25.6 pg (27.0-33.0); MCHC 30.6 % (32.0-36.0); MCV 83.7 fL (80-95); MPV 8.7 fL (8.0-11.0); Monocytes % 7.8; Neutrophils % 63.3; Nucleated RBC 0 %; Platelet Count 323 10^3/uL (130-400); RBC 4.73 10^6/uL (3.93-5.22); RDW 13.7 % (11.7-14.6); RDW-SD 42.1 fL; WBC 9.87 10^3/uL (4.4-10.8)
[2021-06-28] MEDS: MORPHine 4 MG/ML SYR IVP (11:36)
[2021-06-28 11:39] LABS: ALT 52 U/L (14-59); AST 32 U/L (15-37); Albumin 4.2 g/dL (3.4-5.0); Alkaline Phosphatase 67 U/L (46-116); Anion Gap 11.6 mmol/L (3-11); BUN 15 mg/dL (7-18); Bilirubin, Total 0.3 mg/dL (0.2-1.0); CO2 27.4 mmol/L (21.0-32.0); CREATININE 0.7 mg/dL (0.55-1.02); Calcium 10.3 mg/dL (8.5-10.1); Chloride 98 mmol/L (98-107); Glucose 123 mg/dL (74-106); Magnesium 2.1 mg/dL (1.8-2.4); Potassium 3.8 mmol/L (3.5-5.1); Sodium 137 mmol/L (136-145); Total Protein 8.7 g/dL (6.4-8.2)
[2021-06-28 11:41] VITALS: RESP 19
[2021-06-28 11:44] LABS: Troponin I < 0.05 ng/mL (<0.06)
[2021-06-28 11:50] LABS: Lipase 142 U/L (73-393); TSH (W/Ref FT4) 1.57 uIU/mL (0.36-3.74)
[2021-06-28] MEDS: Normal Saline - Diluent 50 ML VIAL IV (12:54)
[2021-06-28] MEDS: Omnipaque 350 MG/ML 100 ML BTL IJ (12:54)
[2021-06-28] MEDS: Normal Saline Flush 10 ML SYR IVP (12:55)
--- NOTE | 2021-06-28 13:45 | RT.EKG_ITS ---
APPROVED REPORT Exam: Resting ECG Reason for Exam: chest pain Patient Location: E HR:68 bpm ECG Measurements Heart Rate 68 AXIS IL 179 P 56 QRSd 88 QRS 13 QT 411 T 34 QTc 436 Conclusion Sinus rhythm...normal P axis, V-rate 60- 99
[2021-06-28 14:22] LABS: Troponin I < 0.05 ng/mL (<0.06)
[2021-06-28 14:48] VITALS: BP 160/58; PULSE 100; RESP 19; TEMP 36.6; O2SAT 97
== END 2021-06-28 14:53 | disposition home or self-care (01) ==
PROVIDERS: Emergency Provider Emergency Medicine; PCP Family Medicine
DX: R07.89 Other chest pain (principal); J44.9 Chronic obstructive pulmonary disease, unspecified; Z99.81 Dependence on supplemental oxygen; I10 Essential (primary) hypertension
CPT/HCPCS: 71275; 80053; 83690; 87635; 93005; 96374; 99285; 83735; 84443; 84484; 85025; 93010; 99284; J2270; J3490

== ENCOUNTER 2021-06-28 12:19 | Outpatient (REF) | payer OTHER, SELFPAY ==
[2021-06-29 03:05] LABS: COVID-19 RT-PCR UVMMC Result Negative (Negative)
== END 2021-06-28 12:20 | disposition home or self-care (01) ==
LOC: LBN 12:19
PROVIDERS: PCP Family Medicine; Visit Provider Physician Assistant Medical
DX: Z20.822 Contact with and (suspected) exposure to COVID-19 (principal); J06.9 Acute upper respiratory infection, unspecified
CPT/HCPCS: U0003

== ENCOUNTER 2022-07-09 18:52 | Outpatient (REF) | payer BC, SELFPAY ==
[2022-07-09 16:28] LABS: HCT 40.1 % (36.0-46.0); MCH 27.7 pg (27.0-33.0); MCHC 32.4 % (32.0-36.0); MCV 86 fL (80-95); MPV 9.4 fL (8.0-11.0); Platelet Count 301 10^3/uL (130-400); RBC 4.69 10^6/uL (3.93-5.22); RDW 13.2 % (11.7-14.6); WBC 11.31 10^3/uL (4.4-10.8)
[2022-07-09 16:53] LABS: ALT 42 U/L (14-59); AST 23 U/L (15-37); Alkaline Phosphatase 66 U/L (46-116); BUN 20 mg/dL (7-18); Bilirubin, Total 0.3 mg/dL (0.2-1.0); CREATININE 0.8 mg/dL (0.55-1.02); Calcium 9.2 mg/dL (8.5-10.1); Chloride 99 mmol/L (98-107); Estimated GFR 77.27 (mL/min/1.73m2); Glucose 97 mg/dL (74-106); Magnesium 1.9 mg/dL (1.8-2.4); Potassium 4.1 mmol/L (3.5-5.1); Sodium 137 mmol/L (136-145); TSH (W/Ref FT4) 0.98 uIU/mL (0.36-3.74); Total Protein 8.1 g/dL (6.4-8.2)
== END 2022-07-09 18:53 | disposition home or self-care (01) ==
LOC: NCHCN 18:52
PROVIDERS: PCP Family Medicine; Visit Provider Family Medicine
DX: E83.42 Hypomagnesemia (principal); E03.9 Hypothyroidism, unspecified; I10 Essential (primary) hypertension; D50.0 Iron deficiency anemia secondary to blood loss (chronic); E88.81 Metabolic syndrome and other insulin resistance
CPT/HCPCS: 80053; 85027; 83735; 84443

== ENCOUNTER 2022-07-17 14:57 | Outpatient (REF) | payer BC, SELFPAY ==
[2022-07-17 19:51] LABS: Bilirubin Negative (Negative); Blood Small (Negative); Clarity Cloudy (Clear); Glucose >=1000 mg/dL (Negative); Ketones Negative (Negative); Leukocyte Esterase Large (Negative); Nitrite Negative (Negative); Urobilinogen 0.2 EU/dL (Up TO 0.2); pH 5.5 (5-8)
[2022-07-17 19:59] LABS: Bacteria Packed HPF (Negative); C & S Indicated? Yes; WBC >50 HPF (0-5)
== END 2022-07-17 14:58 | disposition home or self-care (01) ==
LOC: NCHCN 14:57
PROVIDERS: PCP Family Medicine; Visit Provider Family Medicine
DX: R30.0 Dysuria (principal)
CPT/HCPCS: 87077; 81003; 81015; 87086; 87186

== ENCOUNTER 2022-08-03 15:22 | Outpatient (REF) | payer BC, MEDICARE, SELFPAY ==
[2022-08-03 15:56] LABS: Bilirubin Negative (Negative); Blood Trace-intact (Negative); Clarity Cloudy (Clear); Glucose >=1000 mg/dL (Negative); Ketones Negative (Negative); Leukocyte Esterase Small (Negative); Nitrite Positive (Negative); Urobilinogen 0.2 EU/dL (Up TO 0.2); pH 5.5 (5-8)
[2022-08-03 16:05] LABS: Bacteria Many HPF (Negative); C & S Indicated? C&S Done As Ordered; Casts Negative LPF (Negative); Crystals Negative HPF (Negative); Epithelial Cells Few HPF (Negative); Mucus Negative (Negative); RBC 0-2 HPF (0-2); WBC >50 HPF (0-5)
== END 2022-08-03 15:23 | disposition home or self-care (01) ==
LOC: NCHCN 15:22
PROVIDERS: PCP Family Medicine; Visit Provider Family Medicine
DX: R30.0 Dysuria (principal)
CPT/HCPCS: 87077; 81003; 81015; 87086; 87186

== ENCOUNTER 2022-10-15 10:37 | Outpatient (REF) | payer BC, SELFPAY ==
[2022-10-15 15:30] LABS: TSH (W/Ref FT4) 0.62 uIU/mL (0.36-3.74)
== END 2022-10-15 10:38 | disposition home or self-care (01) ==
LOC: NCHCN 10:37
PROVIDERS: PCP Family Medicine; Visit Provider Family Medicine
DX: E03.9 Hypothyroidism, unspecified (principal)
CPT/HCPCS: 84443

== ENCOUNTER → 2022-10-15 12:34 | Outpatient (CLI) | payer BC, SELFPAY ==
--- NOTE | 2022-10-15 14:45 | DI.RAD_ITS ---
Exam(s) XR CHEST 2V PA LATERAL EXAM: XR CHEST 2V PA LATERAL CLINICAL HISTORY: PLEURITIC CHEST PAIN R07.81 TECHNIQUE: 2D digital imaging was performed. COMPARISON: CR XR CHEST 2V PA LATERAL from 08/04/[address] CHEST PE CTA from 06/28/2021 FINDINGS: HEART: Normal size. Aorta: Not dilated. Calcification at the arch. PULMONARY VASCULATURE: Normal. LUNGS: Streaky densities are noted at the right middle lobe which could represent atelectasis versus scarring or infiltrate. Not apparent on prior exam. PLEURAL SPACE: No pleural effusion or pneumothorax. BONE:Unremarkable for age. IMPRESSION: Question of atelectasis versus infiltrate or scarring right middle lobe. DATA REPOSITORY: RADIATION DOSE DELIVERED:
== END ==
PROVIDERS: PCP Family Medicine; Visit Provider Family Medicine
DX: R07.81 Pleurodynia (principal); J98.4 Other disorders of lung
CPT/HCPCS: 71046

== ENCOUNTER 2022-12-07 13:57 | Outpatient (CLI) | payer BC, SELFPAY ==
[2022-12-07 13:48] LABS: Abs Immature Grans 0.03 10^3/uL (0.0-0.06); Absolute Basophil Count 0.06 10^3/uL (0.0-0.2); Absolute Eosinophil Count 0.31 10^3/uL (0.0-0.7); Absolute Lymphocyte Count 1.98 10^3/uL (1.2-3.4); Absolute Monocyte Count 0.73 10^3/uL (0.1-0.8); Absolute Neutrophil Count 5.36 10^3/uL (1.2-6.7); Basophils % 0.7; ESR 27 mm/hr (0-30); Eosinophils % 3.7; HCT 39.4 % (36.0-46.0); HGB 12.3 g/dL (11.2-15.7); Immature Grans % 0.4; Lymphocytes % 23.4; MCH 27.2 pg (27.0-33.0); MCHC 31.2 % (32.0-36.0); MCV 87 fL (80-95); MPV 8.6 fL (8.0-11.0); Monocytes % 8.6; Neutrophils % 63.2; Platelet Count 232 10^3/uL (130-400); RBC 4.52 10^6/uL (3.93-5.22); RDW 13.6 % (11.7-14.6); RDW-SD 42.5 fL; WBC 8.47 10^3/uL (4.4-10.8)
[2022-12-07 14:02] LABS: ALT 43 U/L (14-59); AST 24 U/L (15-37); Alkaline Phosphatase 63 U/L (46-116); Anion Gap 10.5 mmol/L (3-11); BUN 16 mg/dL (7-18); Bilirubin, Total 0.3 mg/dL (0.2-1.0); C-Reactive Protein 0.97 mg/dL (0.0-0.3); CO2 26.5 mmol/L (21.0-32.0); CREATININE 0.7 mg/dL (0.55-1.02); Chloride 102 mmol/L (98-107); Glucose 108 mg/dL (74-106); Potassium 3.9 mmol/L (3.5-5.1); Sodium 139 mmol/L (136-145); Total Protein 8.3 g/dL (6.4-8.2)
== END 2022-12-07 13:58 | disposition home or self-care (01) ==
LOC: LBO 13:57
PROVIDERS: PCP Family Medicine; Visit Provider Physician Assistant Medical
DX: R51.9 Headache, unspecified (principal); I10 Essential (primary) hypertension
CPT/HCPCS: 36415; 80053; 85652; 85025; 86140

== ENCOUNTER 2023-02-04 02:42 | Outpatient (CLI) | payer BC, MEDICARE, SELFPAY ==
[2023-02-04] MEDS: Albuterol HFA 18 GM 200 PUFF INH IH (16:25)
[2023-02-04] MEDS: Inhaler, Assist Device 1 EACH MC (16:26)
--- NOTE | 2023-02-05 09:06 | W.PFT ---
Date of service: 02/04/23 Time of Service: 14:56 Pulmonary Function Test Result Requesting Provider Manny Lazaro Indications: COPD Interpretation Spirometry: There is moderate airflow limitation. There is no significant bronchodilator response. Muscle pressures are normal. Lung Volumes: There is some air trapping Diffusion Capacity: Decreased diffusion Airway Pressure: Increased airways resistance. Impression Moderate airflow obstruction with some air trapping and a decreased diffusion. 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 Note: When compared to 01/11/12, lung function has improved slightly. Clinical Correlation therefore is recommended.
--- NOTE | 2023-02-05 11:16 | W.PFT ---
Date of service: 02/04/23 Time of Service: 14:56 Pulmonary Function Test Result Requesting Provider Manny Lazaro Indications: COPD Clinical Correlation therefore is recommended.
== END 2023-02-04 02:43 | disposition home or self-care (01) ==
LOC: RT 02:42
PROVIDERS: PCP Family Medicine; Visit Provider Family Medicine
DX: J44.9 Chronic obstructive pulmonary disease, unspecified (principal)
CPT/HCPCS: 94060; 94726; 94729

== ENCOUNTER → 2023-03-12 15:26 | Outpatient (BNVA) | payer BC, MEDICARE, SELFPAY | PROVIDERS: PCP Family Medicine; Visit Provider Nurse Practitioner Adult Health | CPT/HCPCS: 99213; 99214 ==

== ENCOUNTER 2023-04-22 02:36 | Outpatient (CLI) | payer BC, MEDICARE, SELFPAY ==
--- NOTE | 2023-04-22 13:33 | DI.CT_ITS ---
Exam(s) CT CHEST WO EXAM: CT CHEST WO CLINICAL HISTORY: LUNG NODULE, R91.8. TECHNIQUE: Multi planar reconstructions were performed. CONTRAST MATERIAL: None COMPARISON: CT CT CHEST WO from 11/06/2022 FINDINGS: CHEST: LUNGS: The left lingular segment atelectasis is unchanged. Atelectasis in the right middle lobe is s omewhat improved but not resolved. There are no significant new focal findings in the right lower lo be. Previously described small nodule in the right lower lobe is unchanged.. There is a small nodul ar infiltrate in left lower lobe which measures 5 mm. MEDIASTINUM: There is no obvious hilar nor mediastinal adenopathy. Visualized thyroid unremarkable.No obvious axillary adenopathy CARDIAC: Heart size is normal. There is no pericardial effusion.Caliber of the thoracic aorta is wit hin normal limits. VISUALIZED UPPER ABDOMEN:No adrenal masses. Hepatic steatosis. OSSEOUS: No significant osseous lesions.No fractures evident. IMPRESSION: 1. Stable left lung lingular segment atelectasis. 2. Right middle lobe atelectasis-increased markings are mildly improved but not resolved. 3. Stable unchanged 4 millimeter nodule in the right lower lobe. 4. Subtle 5 millimeter nodular infiltrate left lower lobe now evident. 5. No obvious new intrathoracic adenopathy. Recommend repeat CT scan in 6 months. RADIATION DOSE DELIVERED: 693.87mGy.cm Total DLP DATA REPOSITORY: All CT scans at this facility are submitted to the National Radiology Data Registry (NRDR) Dose Index Registry (DIR) with the [employer] (ACR). RADIATION OPTIMIZATION: All CT scans at this facility use at least one of these dose optimization te chniques: automated exposure control; mA and/or kV adjustment per patient size (includes targeted exa ms where dose is matched to clinical indication); or iterative reconstruction.
== END 2023-04-22 02:56 ==
PROVIDERS: PCP Family Medicine; Visit Provider Family Medicine
DX: R91.8 Other nonspecific abnormal finding of lung field (principal)
CPT/HCPCS: 71250

== ENCOUNTER 2023-05-10 13:46 | Outpatient (CLI) | payer BC, MEDICARE, SELFPAY | END 2023-05-10 13:47 | disposition home or self-care (01) | PROVIDERS: PCP Family Medicine; Visit Provider Physician Assistant Surgical | DX: J96.91 Respiratory failure, unspecified with hypoxia (principal) | CPT/HCPCS: 94618; 36600 ==

== ENCOUNTER 2023-05-10 14:02 | Outpatient (CLI) | payer BC, MEDICARE, SELFPAY ==
[2023-05-10 14:20] LABS: BE -3 mmol/L (-2-3); HCO3 22 mmol/L (22-26); pCO2 38 mmHg (35-45); pH 7.38 (7.35-7.45); pO2 80 mmHg (80-105); sO2 95 % (95-98); tCO2 20 mmol/L (23-27)
[2023-05-10 14:21] LABS: FIO2L 2 L; Site Right Radial
--- NOTE | 2023-05-10 15:12 | W.6MWT ---
Date of service: 05/10/23 Time of Service: 14:20 6 Minute Walk Test Note: 6 Minute Walk Test Distance walked: 900 ft Desaturations: Started on 2LPM with no significant desaturations with 2LPM through test. Heart rate changes: 89 at rest increase to 113bpm at 2 min 30 sec Recommendation: No increase in supplemental O2 required with exertion. Ana Collins MD Pulmonary & Critical Care Medicine
== END 2023-05-10 14:03 | disposition home or self-care (01) ==
PROVIDERS: PCP Family Medicine; Visit Provider Physician Assistant Surgical
DX: J96.11 Chronic respiratory failure with hypoxia (principal); J44.9 Chronic obstructive pulmonary disease, unspecified
CPT/HCPCS: 82805

== ENCOUNTER 2023-08-15 21:33 | Outpatient (REF) | payer BC, MEDICARE, SELFPAY ==
[2023-08-15 21:00] LABS: Source Nasal/Nares
[2023-08-15 21:44] LABS: COVID-19 PCR Negative (Negative)
== END 2023-08-15 21:34 | disposition home or self-care (01) ==
LOC: LBN 21:33
PROVIDERS: PCP Family Medicine; Visit Provider Physician Assistant Medical
DX: Z20.822 Contact with and (suspected) exposure to COVID-19 (principal); R05.8 Other specified cough
CPT/HCPCS: 87635

== ENCOUNTER → 2023-08-22 00:34 | Outpatient (CLI) | payer BC, MEDICARE, SELFPAY ==
--- NOTE | 2023-08-22 13:45 | DI.US_ITS ---
APPROVED REPORT EXAM: Comprehensive 2D, Doppler, and color-flow Echocardiogram Patient Location: Out-Patient Head [facility] Reactor Operator: Odilia Ward RDCS (AE) Indications: Dyspnea, Chronic rt sided heart failure Other Information Study Quality: Adequate Conclusion Normal left ventricular wall thickness and chamber size. Ejection fraction is 60%. Wall motion is n ormal Normal right ventricular size and systolic function Atria are normal in size The aortic valve is sclerotic and trileaflet without stenosis or regurgitation Normal mitral valve with trace regurgitation Normal tricuspid valve with trace regurgitation. Estimated right ventricular systolic pressure is 23 mmHg Mildly dilated ascending aorta measuring 3.53 cm Wall motion Left Ventricle The left ventricle is normal size. The left ventricular systolic function is normal. The left ventric ular ejection fraction is within the normal range. There is normal left ventricular wall thickness. T here is normal LV segmental wall motion. There is no ventricular septal defect visualized. LVEF is 60 %. Right Ventricle The right ventricle is normal size. The right ventricular systolic function is normal. Atria The left atrium size is normal. The right atrium size is normal. The interatrial septum is intact wit h no evidence for an atrial septal defect. Aortic Valve The Aortic valve is sclerotic. Aortic valve is trileaflet. There is no aortic valvular stenosis. No a ortic regurgitation is present. Mitral Valve The mitral valve is normal in structure. No evidence of mitral valve stenosis. Trace mitral regurgita tion. Tricuspid Valve The tricuspid valve is normal in structure. There is no tricuspid valve stenosis. Trace tricuspid reg urgitation. Pulmonic Valve The pulmonary valve is normal in structure. There is no pulmonic valvular stenosis. Trace pulmonic r egurgitation. Great Vessels The aortic root is normal in size. The ascending aorta is mildly dilated. Aortic arch is not well vis ualized. IVC is normal in size and collapses >50% with inspiration. Pericardium There is no pericardial effusion. 2D Dimensions IVSD d PLAX 1.00 cm F: 0.6-1.0 Ao Root d 3.16 cm F: 2.7 - 3.3 LVPW d PLAX 1.02 cm F: 0.6 - 1.0 Ao Asc Diam d 3.53 cm F: 2.3 - 3.1 LVID d PLAX 4.60 cm F: 3.8 - 5.2 LVDs 3.17 cm F: 2.2 - 3.5 LV EF Teichholz 58.8 % FS 31.02 % LV EDV (Teich) 97.2 mL LV ESV (Teich) 40.1 mL M-Mode TAPSE 2.18 cm (M/F) >1.7 Auto EF LV EDV A4C 97.0 mL LV EDV A2C 90.3 mL LV EDV BP 94.5 mL LV ESV A4C 42.8 mL LV ESV A2C 35.0 mL LV ESV BP 38.8 mL LVEF(%) A4C 55.9 % LVEF(%) A2C 61.2 % LVEF(%) BP 58.9 % LV SV A4C 54.2 ml LV SV A2C 55.2 ml LV SV BP 55.6 ml LV CO A4C 3.6 L/min LV CO A2C 3.6 L/min LV CO BP 3.6 L/min HR A4C 67.04 BPM HR A2C 66.06 BPM LV EDV Index (BP) RV Strain Global Peak Long. Strain A4C 17.29 Global Peak Long. Strain A4C FW 20.05 LA Volume LA Length A4C 5.2 cm LA Length A2C 5.0 cm LA Area A4C s 16.37 cm2 LA Area A2C s 18.13 cm2 LA Vol A4C A-L 43.95 mL LA Vol A2C A-L 55.70 mL LA Vol Biplane A-L 50.3 mL LA Vol/BSA A4C A-L LA Vol/BSA A2C A-L LA Vol/BSA BP A-L 26.3 mL/m2 LA Vol A4C MOD 41.6 mL LA Vol A2C MOD 51.8 mL LA Vol BP MOD 47.0 mL RA Volume RA Area A4C 11.9 cm2 RA ESV A4C (A-L) 23.5mL RA Vol/BSA A4C A-L RA Length A4C 5.1 cm RA ESV A4C (MOD) 22.5mL LV Diastology MV E' medial 0.087 (>0.07 m/s) MV E Vmax 0.83 (0.4-1.3 m/s) MV E/E' MED 9.54 (<14) MV A Vmax 0.75 (0.4-1.3 m/s) MV E' lateral 0.094 (>0.1 m/s) E/A Ratio 1.1 MV E/E' LAT 8.84 (<14) MV E' Average 0.091 m/s MV E/E'(average) 9.18 Aortic Valve AoV Vmax 1.58 m/s LVOT Vmax 1.44 m/s AoV Peak Grad 10.0 mmHg LVOT Peak Grad 8.3 mmHg AoV Area (Vmax) 3.17 cm2 LVOT VTI 0.335 m AoV VTI 0.396 m LVOT Mean Grad 4.3 mmHg AoV Mean Sarkis. 1.14 m/s LVOT SV 116.54 mL AoV Mean Grad 5.9 mmHg LVOT Diam s 2.10 cm AoV Area (VTI) 2.94 cm2 Velocity Ratio 0.91 Mitral Valve MV DT 237 (160-240 msec) MV Vmax TIPS 0.84 m/s MV Mean Grad 1.4 (<2mmHg) MV VTI 0.326 m Pulmonary Valve PV Vmax 1.18 (0.5-1.5 m/s) RVOT Vmax 0.79 m/s PV Peak Grad 5.6 mmHg RVOT Peak Gr. 2.5 mmHg PV Mean Sarkis 0.78 m/s RVOT VTI 0.180 m PV Mean Grad 2.8 mmHg RVOT Mean Gr. 1.6 mmHg Tricuspid Valve RA Pressure 3.00 mmHg TR Vmax 2.20 m/s TV S' 0.14 m/s TR Peak Grad 19.3 mmHg RVSP (TR) 22.3 mmHg
== END ==
PROVIDERS: PCP Family Medicine; Visit Provider Physician Assistant Surgical
DX: R06.00 Dyspnea, unspecified (principal)
CPT/HCPCS: 93306

== ENCOUNTER → 2023-08-23 13:07 | Outpatient (BNVA) | payer BC, MEDICARE, SELFPAY | PROVIDERS: PCP Family Medicine; Referring Provider Family Medicine; Visit Provider Student in an Organized Health Care Education/Training Program | DX: J96.11 Chronic respiratory failure with hypoxia (principal); R91.8 Other nonspecific abnormal finding of lung field; R04.2 Hemoptysis | CPT/HCPCS: 99214 ==

== ENCOUNTER 2023-09-06 12:47 | Outpatient (CLI) | payer BC, MEDICARE, SELFPAY ==
[2023-09-06 12:07] LABS: Abs Immature Grans 0.05 10^3/uL (0.0-0.06); Absolute Basophil Count 0.03 10^3/uL (0.0-0.2); Absolute Eosinophil Count 0.24 10^3/uL (0.0-0.7); Absolute Lymphocyte Count 1.56 10^3/uL (1.2-3.4); Absolute Monocyte Count 0.81 10^3/uL (0.1-0.8); Absolute Neutrophil Count 5.44 10^3/uL (1.2-6.7); Basophils % 0.4; HCT 36.8 % (36.0-46.0); HGB 11.7 g/dL (11.2-15.7); Immature Grans % 0.6; Lymphocytes % 19.2; MCH 26.9 pg (27.0-33.0); MCHC 31.8 % (32.0-36.0); MCV 85 fL (80-95); MPV 8.4 fL (8.0-11.0); Neutrophils % 66.8; Platelet Count 219 10^3/uL (130-400); RBC 4.35 10^6/uL (3.93-5.22); RDW 13.2 % (11.7-14.6); RDW-SD 40.8 fL; WBC 8.13 10^3/uL (4.4-10.8)
[2023-09-06 12:40] LABS: D-Dimer 559 ng/mlFEU (<500)
[2023-09-06 13:03] LABS: Anion Gap 12.3 mmol/L (3-11); BUN 21 mg/dL (7-18); CO2 23.7 mmol/L (21.0-32.0); CREATININE 0.8 mg/dL (0.55-1.02); Calcium 9.4 mg/dL (8.5-10.1); Chloride 101 mmol/L (98-107); Estimated GFR 76.79 (mL/min/1.73m2); Glucose 157 mg/dL (74-106); Sodium 137 mmol/L (136-145)
== END 2023-09-06 12:48 | disposition home or self-care (01) ==
LOC: LBO 12:48
PROVIDERS: PCP Family Medicine; Visit Provider Nurse Practitioner Family
DX: J44.9 Chronic obstructive pulmonary disease, unspecified (principal)
CPT/HCPCS: 36415; 80048; 85025; 85379

== ENCOUNTER → 2023-09-26 03:38 | Outpatient (CLI) | payer BC, MEDICARE, SELFPAY ==
--- NOTE | 2023-09-26 15:26 | DI.CT_ITS ---
Exam(s) CT CHEST WO EXAM: CT CHEST WO CLINICAL HISTORY: COPD J44.9 CHEST PRESSURE R07.89 COUGH R05.8 TECHNIQUE: Imaging Protocol: Axial computed tomography images with coronal and sagittal reformatted images were created and reviewed CONTRAST MATERIAL: Intravenous: Omnipaque 350 Contrast volume:structured data ml. COMPARISON: No exams were available for comparison FINDINGS: Pulmonary parenchyma: Lingular atelectasis. Linear scarring seen posterior right lower and middle lo bes. Previously noted 5 millimeter nodule left lower lobe no longer present. Stable right lower lob e nodule. no consolidation. No dominant measurable mass. Mild emphysematous changes. Tracheobronchial tree: No bronchiectasis or mucous plugging. Mediastinum and Rima: No dominant adenopathy or fluid collection. Pleura: No effusion. No pneumothorax. Heart: The heart is not dilated. Moderate to severe coronary artery calcifications are seen. Aorta: Thoracic aorta non-dilated. Moderate atherosclerotic changes. Upper abdomen: Enlarged fatty liver. Bones: Degenerative changes in the spine. Soft tissues: Unremarkable. IMPRESSION: No acute abnormality. Linear and atelectasis and scarring. Stable small nodule right lower lobe. Previously noted left lower lobe nodule not present on the cur rent exam. RADIATION DOSE DELIVERED: Total DLP DATA REPOSITORY: All CT scans at this facility are submitted to the National Radiology Data Registry (NRDR) Dose Index Registry (DIR) with the [employer] (ACR). RADIATION OPTIMIZATION: All CT scans at this facility use at least one of these dose optimization te chniques: automated exposure control; mA and/or kV adjustment per patient size (includes targeted exa ms where dose is matched to clinical indication); or iterative reconstruction.
== END ==
PROVIDERS: PCP Family Medicine; Visit Provider Nurse Practitioner Family
DX: J98.11 Atelectasis (principal); R91.1 Solitary pulmonary nodule; J44.9 Chronic obstructive pulmonary disease, unspecified; R07.89 Other chest pain; R05.8 Other specified cough
CPT/HCPCS: 71250

== ENCOUNTER 2023-12-02 16:50 | Outpatient (REF) | payer BC, MEDICARE, SELFPAY ==
[2023-12-02 21:36] LABS: Hemoglobin A1C 6.7 % (<5.7)
[2023-12-02 21:46] LABS: Anion Gap 12.8 mmol/L (3-11); BUN 32 mg/dL (7-18); CO2 24.2 mmol/L (21.0-32.0); CREATININE 0.8 mg/dL (0.55-1.02); Calcium 9.8 mg/dL (8.5-10.1); Chloride 103 mmol/L (98-107); Estimated GFR 76.79 (mL/min/1.73m2); FREE T4 1.25 ng/dL (0.76-1.46); Glucose 100 mg/dL (74-106); Potassium 4.8 mmol/L (3.5-5.1); Sodium 140 mmol/L (136-145); TSH 0.21 uIU/mL (0.36-3.74)
== END 2023-12-02 16:51 | disposition home or self-care (01) ==
LOC: NCHCN 16:50
PROVIDERS: PCP Family Medicine; Visit Provider Family Medicine
DX: E03.9 Hypothyroidism, unspecified (principal); E11.9 Type 2 diabetes mellitus without complications; I10 Essential (primary) hypertension
CPT/HCPCS: 80048; 83036; 84439; 84443

== ENCOUNTER 2023-12-14 11:16 | Outpatient (REF) | payer BC, MEDICARE, SELFPAY ==
[2023-12-14 16:13] LABS: Source Nasal/Nares
[2023-12-14 16:57] LABS: COVID-19 PCR Negative (Negative)
== END 2023-12-14 11:17 | disposition home or self-care (01) ==
LOC: LBN 11:16
PROVIDERS: PCP Family Medicine; Visit Provider Physician Assistant Medical
DX: R05.8 Other specified cough (principal); J02.9 Acute pharyngitis, unspecified; Z20.822 Contact with and (suspected) exposure to COVID-19
CPT/HCPCS: 87635; 87070

== ENCOUNTER 2024-04-28 14:55 | Outpatient (REF) | payer BC, MEDICARE, SELFPAY ==
[2024-04-28 16:35] LABS: COMMENT (LAB VIEW ONLY) 102.59 mg/dL; Microalb ug/mg Crea 23.2 ug/mg Cr
[2024-04-28 19:31] LABS: Abs Immature Grans 0.03 10^3/uL (0.0-0.06); Absolute Basophil Count 0.06 10^3/uL (0.0-0.2); Absolute Eosinophil Count 0.25 10^3/uL (0.0-0.7); Absolute Lymphocyte Count 1.87 10^3/uL (1.2-3.4); Absolute Monocyte Count 0.68 10^3/uL (0.1-0.8); Absolute Neutrophil Count 5.14 10^3/uL (1.2-6.7); Basophils % 0.7 %; Eosinophils % 3.1 %; HCT 37.4 % (36.0-46.0); HGB 11.5 g/dL (11.2-15.7); Immature Grans % 0.4 %; Lymphocytes % 23.3 %; MCH 26.7 pg (27.0-33.0); MCHC 30.7 % (32.0-36.0); MCV 87 fL (80-95); MPV 9.3 fL (8.0-11.0); Monocytes % 8.5 %; Platelet Count 282 10^3/uL (130-400); RBC 4.31 10^6/uL (3.93-5.22); RDW 13.2 % (11.7-14.6); RDW-SD 41.9 fL; WBC 8.03 10^3/uL (4.4-10.8)
[2024-04-28 19:52] LABS: ALT 65 U/L (14-59); AST 39 U/L (15-37); Albumin 4.1 g/dL (3.4-5.0); Alkaline Phosphatase 61 U/L (46-116); Anion Gap 13.9 mmol/L (3-11); BUN 23 mg/dL (7-18); Bilirubin, Total 0.2 mg/dL (0.2-1.0); CO2 22.1 mmol/L (21.0-32.0); Calcium 9.8 mg/dL (8.5-10.1); Chloride 104 mmol/L (98-107); Estimated GFR 58.39 (mL/min/1.73m2); Glucose 110 mg/dL (74-106); Magnesium 1.7 mg/dL (1.8-2.4); Potassium 4.2 mmol/L (3.5-5.1); Sodium 140 mmol/L (136-145); Total Protein 7.9 g/dL (6.4-8.2)
== END 2024-04-28 14:56 | disposition home or self-care (01) ==
LOC: NCHCN 14:55
PROVIDERS: PCP Family Medicine; Visit Provider Student in an Organized Health Care Education/Training Program
DX: E11.9 Type 2 diabetes mellitus without complications (principal); R19.7 Diarrhea, unspecified
CPT/HCPCS: 80053; 82043; 82570; 83735; 85025

== ENCOUNTER 2024-11-24 16:28 | Outpatient (REF) | payer BC, SELFPAY ==
[2024-11-24 22:05] LABS: COMMENT (LAB VIEW ONLY) 66.17 mg/dL; Microalb ug/mg Crea 87.8 ug/mg Cr
== END 2024-11-24 16:29 | disposition home or self-care (01) ==
LOC: LBN 16:28
PROVIDERS: PCP Student in an Organized Health Care Education/Training Program; Visit Provider Student in an Organized Health Care Education/Training Program
DX: E11.9 Type 2 diabetes mellitus without complications (principal); R19.7 Diarrhea, unspecified
CPT/HCPCS: 82040; 82043; 82570